=== PATIENT | male | born 1965 | race Asian ===

== ENCOUNTER 2019-01-16 18:16 | Emergency (ER) | payer OTHER ==
[~2019-01-16] VITALS: Ht 182.9 cm; Wt 89.8 kg
[2019-01-16 18:55] VITALS: BP_SYST 138
[2019-01-16 22:33] VITALS: BP_SYST 138
== END 2019-01-16 22:33 | disposition home or self-care (01) ==
LOC: SED 18:16
DX: S86.911A Strain of unspecified muscle(s) and tendon(s) at lower leg level, right leg, initial encounter (principal); X50.9XXA Other and unspecified overexertion or strenuous movements or postures, initial encounter; Y93.39 Activity, other involving climbing, rappelling and jumping off; Y92.89 Other specified places as the place of occurrence of the external cause; Y99.8 Other external cause status
CPT/HCPCS: 93971; 99284